=== PATIENT | male | born 1950 | race Caucasian/White ===

== ENCOUNTER 2019-11-07 13:59 | Inpatient (IN) | payer BC, MEDICARE ==
[~2019-11-07] VITALS: Ht 175.3 cm; Wt 87.0 kg
[2019-11-07] MEDS ORDERED: LACTATED RINGERS 1,000 ML IV ONE (14:33)
[2019-11-07] MEDS ORDERED: CHLORHEXIDINE 15 ML UDC MM ONE (14:33)
[2019-11-07 14:46] LABS: BASOPHILS # (AUTO) 0.04 x10^3/uL (0-0.1); BASOPHILS % (AUTO) 1 % (0-1); EOSINOPHILS # (AUTO) 0.23 x10^3/uL (0-0.4); EOSINOPHILS % (AUTO) 4 % (1-7); LYMPHOCYTES # (AUTO) 1.01 x10^3/uL (1-3.4); LYMPHOCYTES % (AUTO) 18 % (22-44); MD NO; MEAN CORPUSCULAR HEMOGLOBIN 29.7 pg (27.5-34.5); MEAN CORPUSCULAR HGB CONC 33.3 g/dL (33.2-36.2); MEAN CORPUSCULAR VOLUME 89.3 fL (81-97); MEAN PLATELET VOLUME 7.8 fL (7.4-10.4); MONOCYTES # (AUTO) 0.42 x10^3/uL (0.2-0.8); MONOCYTES % (AUTO) 7 % (2-9); NEUTROPHILS # (AUTO) 3.93 x10^3/uL (1.8-6.8); NEUTROPHILS % (AUTO) 70 % (42-75); PLATELET COUNT 252 x10^3/uL (130-400); RED BLOOD COUNT 5.65 x10^6/uL (4.38-5.82); RED CELL DISTRIBUTION WIDTH 13.9 % (9.4-14.8)
[2019-11-07 14:56] LABS: ALANINE AMINOTRANSFERASE 15 U/L (12-78); ALBUMIN 3.4 g/dL (3.4-5.0); ANION GAP 5 mmol/L (5-15); CALCIUM 9.3 mg/dL (8.5-10.1); CHLORIDE 111 mmol/L (98-107); CREATININE 0.81 mg/dL (0.7-1.3)
[2019-11-07 14:58] VITALS: BP 149/92
[2019-11-07 14:58] LABS: ALKALINE PHOSPHATASE 94 U/L (45-117); BILIRUBIN,TOTAL 0.7 mg/dL (0.2-1.0); TOTAL PROTEIN 7.3 g/dL (6.4-8.2)
[2019-11-07] MEDS ORDERED: ATENOLOL 100 MG TABLET PO ONE (15:02)
[2019-11-07] MEDS ORDERED: AMLO-150 PO (15:04)
[2019-11-07] MEDS ORDERED: HYDR12.517 PO (15:04)
[2019-11-07] MEDS ORDERED: ATEN100T PO (15:04)
[2019-11-07] MEDS ORDERED: HEPARIN 1,000 UNITS/ML, 10ML ONE (16:07)
[2019-11-07] MEDS ORDERED: PAPAVERINE 30 MG/ML, 2ML ONE (16:07)
[2019-11-07] MEDS ORDERED: THROMBIN 20,000 UNIT VIAL TP ONE (16:07)
[2019-11-07] MEDS ORDERED: BUPIVACAINE/PF-EPI 0.5% 1:200K ONE (16:07)
[2019-11-07] MEDS ORDERED: PROTAMINE SULFATE 10 MG/ML, 5ML ONE (16:07)
[2019-11-07] MEDS ORDERED: FENTANYL PF 250 MCG/5ML ONE (17:34)
[2019-11-07] MEDS ORDERED: PROMETHAZINE 25 MG/ML, 1ML IVPush PRN (19:00)
[2019-11-07] MEDS ORDERED: LABETALOL 5MG/ML, 20ML IV PRN (19:00)
[2019-11-07] MEDS ORDERED: MEPERIDINE/PF 25MG/0.5ML IVPush PRN (19:00)
[2019-11-07] MEDS ORDERED: ALBUTEROL SULFATE 2.5 MG/3 ML NPPB PRN (19:00)
[2019-11-07] MEDS ORDERED: ACETAMINOPHEN 325 MG TABLET PO PRN (19:00)
[2019-11-07] MEDS ORDERED: LORazepam 2 MG/ML, 1ML IVPush PRN (19:00)
[2019-11-07] MEDS ORDERED: OXYcodone 5 MG/5 ML ORAL.SOL UDC PO PRN (19:00)
[2019-11-07] MEDS ORDERED: HYDROmorphone 1 MG/ML, 1ML INJ IVPush PRN (19:00)
[2019-11-07] MEDS ORDERED: hydrALAzine 20 MG/ML, 1ML IV PRN (19:00)
[2019-11-07] MEDS ORDERED: VISIPAQUE 270 MG/ML, 150ML BOTTLE ONE (19:17)
[2019-11-07] MEDS ORDERED: PROTAMINE SULFATE 10 MG/ML, 25ML ONE (19:24)
[2019-11-07] MEDS ORDERED: SUCCINYLCHOLINE 20 MG/ML, 10ML ONE (19:38)
[2019-11-07] MEDS ORDERED: PROPOFOL 10 MG/ML, 20ML ONE (19:38)
[2019-11-07] MEDS ORDERED: DEXAMETHASONE 4 MG/ML, 1ML ONE (19:38)
[2019-11-07] MEDS ORDERED: SUGAMMADEX 200 MG/2 ML IVPush ONE (19:38)
[2019-11-07] MEDS ORDERED: ROCURONIUM 10MG/ML,5ML ONE (19:38)
[2019-11-07] MEDS ORDERED: CEFAZOLIN 1,000 MG ONE (19:38)
[2019-11-07] MEDS ORDERED: ONDANSETRON 2MG/ML, 2ML ONE (19:38)
[2019-11-07] MEDS ORDERED: FENTANYL PF 100 MCG/2ML ONE ×2 (19:59→20:08)
[2019-11-07] MEDS: FENTANYL PF 100 MCG/2ML IV PRN ×4 (20:05→20:30)
[2019-11-07] MEDS ORDERED: HYDROmorphone 1 MG/ML, 1ML INJ ONE (20:08)
[2019-11-07] MEDS ORDERED: LORazepam 2 MG/ML, 1ML ONE (20:08)
[2019-11-07] MEDS ORDERED: OXYcodone 5 MG/5 ML ORAL.SOL UDC ONE (21:03)
[2019-11-07] MEDS ORDERED: ACETAMINOPHEN 650 MG/20.3 ML UDC ONE (21:03)
[2019-11-07 21:15] VITALS: BP 147/81
[2019-11-07] MEDS ORDERED: SODIUM CHLORIDE FLUSH 10ML SYR IVF SCH (22:00)
[2019-11-07] MEDS ORDERED: ONDANSETRON 2MG/ML, 2ML IV PRN (22:30)
[2019-11-07] MEDS ORDERED: OXYcodone IR 5MG TABLET PO PRN (22:30)
[2019-11-08 00:38] VITALS: BP 134/76
[2019-11-08 03:40] VITALS: BP 142/87
[2019-11-08] MEDS ORDERED: ATENOLOL 100 MG TABLET PO SCH (06:00)
[2019-11-08 07:34] VITALS: BP 148/73
[2019-11-08] MEDS ORDERED: HEPARIN 5,000 UNITS/ML, 1ML SQ SCH (09:00)
[2019-11-08] MEDS ORDERED: SODIUM CHLORIDE FLUSH 10ML SYR IVF SCH (09:00)
[2019-11-08] MEDS ORDERED: AMLODIPINE 5 MG TABLET PO SCH (09:00)
[2019-11-08] MEDS ORDERED: ASPIRIN 81 MG TABLET CHEW PO SCH (09:00)
[2019-11-08] MEDS ORDERED: HYDROCHLOROTHIAZIDE 12.5 MG CAPSULE PO SCH (09:00)
[2019-11-08] MEDS ORDERED: ASPI-515 PO (09:48)
== END 2019-11-08 10:05 | disposition home or self-care (01) | DRG 269 ==
LOC: ORIP 13:59 → EDSTATUS 17:00 → 4NE 21:36 → DCLOUNGE 11-08 09:44
PROVIDERS: ADMIT Surgery; ATTEND Surgery
PROC: 04V03EZ Restriction of Abdominal Aorta with Branched or Fenestrated Intraluminal Device, One or Two Arteries, Percutaneous Approach (ICD-10-PCS; principal; 2019-11-07 17:00)
DX: I71.4 Abdominal aortic aneurysm, without rupture (principal); I10 Essential (primary) hypertension; Z20.828 Contact with and (suspected) exposure to other viral communicable diseases
CPT/HCPCS: 34705; 36415; 71045; 76937; 80053; 85025; 86850; 86900; 87635; 93005; G0378; J0690; J1100; J1644; J2405; J2704; J2720; J3010; Q9966; C1751; C1760; C1769; C1894; J0330; J2440; J7120

== ENCOUNTER 2020-12-14 11:49 | Emergency (ER) | payer MEDICARE ==
[~2020-12-14] VITALS: Ht 175.3 cm; Wt 80.3 kg
[~2020-12-14 11:49] MED LIST: AMLO-150 PO; ASPI-963 PO; ATEN100T PO; HYDR12.517 PO
--- NOTE | 2020-12-14 12:22 | NUR ---
PT TO ROOM FROM TRIAGE, PT CHANGED INTO GOWN, MONITORS IN PLACE. AT BS. PT C/O RLQ/RUQ PAIN FOR 2 DAYS. PT STATES HE HAD SX ON R-GROIN LAST NOVEMBER FOR SPINAL ANEURYSM. PT AXOX4, BED IN LOWEST POSITION, BED RAILS UP X2
[2020-12-14] MEDS ORDERED: HYDROmorphone 2 MG/ML, 1ML ONE (12:53)
[2020-12-14] MEDS ORDERED: ONDANSETRON 2MG/ML, 2ML ONE (12:54)
[2020-12-14] MEDS ORDERED: ONDANSETRON 2MG/ML, 2ML IVPush ONE (13:00)
[2020-12-14] MEDS ORDERED: HYDROmorphone 1 MG/ML, 1ML INJ IV ONE (13:00)
[2020-12-14] MEDS ORDERED: SODIUM CHLORIDE FLUSH 10ML SYR IVF ONE ×2 (13:00→15:30)
--- NOTE | 2020-12-14 13:10 | NUR ---
Covering primary nurse for lunch> IV started, bloods drawn and sent. Urinal provided requested sample. Placed on cont pulse ox/b/p, rails up, bed low, call beltran in reach. Waiting for xray. Will continue to monitor. 1mg dilaudid IV 4mg zofran per order.
[2020-12-14 13:15] LABS: BASOPHILS % (AUTO) 1 % (0-1); EOSINOPHILS % (AUTO) 1 % (1-7); LYMPHOCYTES % (AUTO) 7 % (22-44); MEAN CORPUSCULAR HGB CONC 34.2 g/dL (33.2-36.2); MEAN PLATELET VOLUME 9.3 fL (7.4-10.4); MONOCYTES % (AUTO) 6 % (2-9); NEUTROPHILS % (AUTO) 86 % (42-75); PLATELET COUNT 173 x10^3/uL (130-400); RED BLOOD COUNT 4.87 x10^6/uL (4.38-5.82); RED CELL DISTRIBUTION WIDTH 13.9 % (9.4-14.8)
--- NOTE | 2020-12-14 13:18 | NUR ---
Pt much more comfortable with no adverse rxn to dilaudid, on monitor, at bedside. Will continue to monitor.
--- NOTE | 2020-12-14 13:24 | NUR ---
xray at bs
[2020-12-14 13:30] LABS: ALANINE AMINOTRANSFERASE 20 U/L (12-78); ALKALINE PHOSPHATASE 101 U/L (45-117); BILIRUBIN,TOTAL 1.5 mg/dL (0.2-1.0); CREATININE 0.93 mg/dL (0.7-1.3); TOTAL PROTEIN 6.7 g/dL (6.4-8.2)
--- NOTE | 2020-12-14 13:30 | NUR ---
PT UNABLE TO VOID AT THIS TIME
[2020-12-14 13:32] LABS: ALBUMIN 3.3 g/dL (3.4-5.0); ANION GAP 4 mmol/L (5-15); CALCIUM 8.7 mg/dL (8.5-10.1); CHLORIDE 108 mmol/L (98-107)
[2020-12-14 13:42] VITALS: BP 147/75
[2020-12-14 15:00] LABS: MICROSCOPIC INDICATED
--- NOTE | 2020-12-14 15:20 | NUR ---
PT TO CT
--- NOTE | 2020-12-14 15:34 | NUR ---
PT BACK FROM CT, CONNECTED TO ALL MONITORS, CALL LIGHT WITHIN REACH
[2020-12-14] MEDS ORDERED: OMNIPAQUE 350 MG/ML, 100ML BOTTLE ONE (15:36)
--- NOTE | 2020-12-14 16:27 | NUR ---
ERP AT FOR RECHECK
--- NOTE | 2020-12-14 16:41 | NUR ---
Patient given discharge instructions and they have confirmed that they understand the instructions. Patient ambulatory with steady gait.
== END 2020-12-14 16:42 | disposition home or self-care (01) ==
LOC: ED 14:59
DX: N13.2 Hydronephrosis with renal and ureteral calculous obstruction (principal); R10.31 Right lower quadrant pain; R10.11 Right upper quadrant pain; I10 Essential (primary) hypertension; E78.5 Hyperlipidemia, unspecified
CPT/HCPCS: 36415; 74021; 74177; 76700; 80053; 81001; 83690; 85025; 87086; 93005; 96374; 96375; 99285; J1170; J2405; Q9967